=== PATIENT | female | born 1945 | race Caucasian/White ===

== ENCOUNTER 2021-03-07 06:25 | Inpatient (IN) | payer MEDICARE ==
[~2021-03-07] VITALS: Ht 160 cm; Wt 45.9 kg
--- NOTE | 2021-03-07 06:35 | PHYS DOC ---
General Adult EDM: Chief Complaint: CHEST PAIN HPI: HPI: 75 yo F PMH CAD (LAD w/ MELISSA 2015), HTN, HLD, sinus disease and tobacco use, presents to the ED with her daughter (patient consents to his/her/their knowledge and involvement in pts' medical care), complains of sudden onset sharp, nonradiating pain "where my bra strap is," just below her shoulder blades that started around 530 this morning, waking patient up. Reports associated shortness of breath and diaphoresis. Took 1 nitro and 2 baby aspirin's prior to arrival. Pain still present but not as severe. Patient follows with a marketing production specialist annually, Dr. Brizuela, in [place] where pt lives (pt here visiting). Cannot recall any stress test since her heart attack in 2016. Patient had no chest or back discomfort with her prior heart attack -reported tingling in her arms and diaphoresis. Reports no known history of Covid and has been vaccinated for Covid. Only past surgical history is breast augmentation. No history of clotting disorders. Not on any blood thinners. Was formally on Plavix. Review of Systems: Review of Systems: Constitutional: Denies fever or chills Eyes: Denies change in visual acuity HENT: Denies nasal congestion or sore throat Respiratory: Denies cough or hemoptysis Cardiovascular: Denies chest pain or edema GI: Denies abdominal pain, vomiting, bloody stools or diarrhea : Denies dysuria or vaginal bleeding Musculoskeletal: Denies cva tenderness or joint pain Integument: Denies rash or desquamation Neurologic: Denies headache, focal weakness or sensory changes Endocrine: Denies polyuria or polydipsia Lymphatic: Denies swollen glands Psychiatric: Denies depression or anxiety Physical Exam: PE: Constitutional: Well developed, well nourished, no acute distress, non-toxic appearance. HENT: Normocephalic, atraumatic, Eyes: EOMI, conjunctiva normal, no discharge. Neck: Normal range of motion, supple, Cardiovascular: S1/2 present, regular rhythm Lungs & Thorax: Speaking in full sentences, bilateral equal chest rise, no tachypnea or increased work of breathing Abdomen: soft, no tenderness, Skin: Warm, dry, no erythema, no rash. [] Back: No reproducible tenderness, no CVA tenderness. [] Extremities: No tenderness, no cyanosis, no lower extremity edema Neurologic: Alert and oriented X 3, normal motor function, normal sensory function, no focal deficits noted. [] Psychologic: Affect normal, judgement normal, mood normal. [] EKG: EK Sinus rhythm 60 bpm, no axis deviation, first-degree AV block with IL interval 200, QTC 462, T wave inversion V2, Q-wave lead III, no ST elevation or ST depression, no prior EKG for comparison 0714 sinus rhythm 62 bpm, no axis deviation, first-degree AV block with IL interval 202, T wave inversion aVL (new) and V2, no ST elevation or ST depression Radiology/Procedures: Radiology/Procedures: IMAGING REPORT Signed PATIENT: NORBERTO HOANG ACCOUNT: [id number] : 1945 LOCATION: ER AGE: 75 SEX: F EXAM STATUS: PRE ER ORD. PHYSICIAN: GUSTAOV VIEIRA DO REASON: cp PROCEDURE: PORTABLE CHEST 1V XR CHEST 1V History: Reason: cp / Spl. Instructions: / History: Comparison: None. Findings: Hyperinflation. No consolidation or pleural effusion. Normal heart size. No pneumothorax. Bilateral calcified breast implants. Impression: 1. No acute cardiopulmonary process. Electronically signed by: Nas Person DO (03/07/2021 7:03 AM) [facility] DICTATED AND SIGNED BY: NAS PERSON DO DATE: 03/07/21 0702 CC: PCP,NO; GUSTAVO VIEIRA DO ~MTH0 0 IMAGING REPORT Signed PATIENT: NORBERTO HOANG ACCOUNT: [id number] : 1945 LOCATION: ER AGE: 75 SEX: F EXAM STATUS: REG ER ORD. PHYSICIAN: GUSTAVO VIEIRA DO REASON: cp, r/o dissection - 100mls omni 350 PROCEDURE: CT ANGIOGRAPHY CHEST EXAM: CT ANGIOGRAPHY OF THE CHEST WITH AND WITHOUT CONTRAST. HISTORY: Chest pain. TECHNIQUE: Computed tomographic angiography of the chest was performed before and after the intravenous administration of iodinated contrast. 3-D maximum intensity projections were also performed. One or more of the following individu alized dose reduction techniques were utilized for this examination: 1. Automated exposure control. 2. Adjustment of the mA and/or kV according to patient size. 3. Use of iterative reconstruction technique. COMPARISON: None. FINDINGS: Images of the upper abdomen reveal no acute abnormality. Bone windows reveal no suspicious lesions. There is a mild pectus excavatum deformity. No pulmonary emboli are identified. There is extensive uncalcified greater than calcified aortic plaquing. There is ectasia of the descending aorta measuring 3.4 x 3.2 cm. There is no ascending aneurysm. There is mild stenosis at the origin of the left subclavian artery. There is a common origin of the left common carotid and brachiocephalic arteries, a variant of normal. There are no pathologically enlarged mediastinal or axillary lymph nodes. There is no pleural or pericardial effusion. The heart is not enlarged. There are bilateral calcified breast implants. Implant rupture suspected medially on the right. A 5 mm nodule in the left upper lobe on image 35 is indeterminate but likely benign at this small size. Interstitial line thickening in the bases and laterally in the right upper lobe are consistent with a combination of atelectasis and scarring. There is also pleural parenchymal scarring in the apices. IMPRESSION: 1. Extensive ulcerated atherosclerotic plaquing throughout the descending aorta without dissection or penetrating atherosclerotic ulcer. There is mild ectasia of the descending aorta at 3.4 cm. 2. 5 mm left upper lobe nodule, likely benign at this size. Follow-up could be considered in one year if there are risk factors. Electronically signed by: Дмитрий Cook MD (03/07/2021 9:10 AM) [id number] DICTATED AND SIGNED BY: SAMI COOK MD DATE: 03/07/21 0858 CC: PCP,NO; GUSTAVO VIEIRA DO ~MTH0 0 Heart Score: C/O Chest Pain: Yes HEART Score for Chest Pain: HEART Score for Chest Pain Response (Comments) Value History Moderately Suspicious 1 ECG Normal 0 Age > 65 2 Risk Factors >3 Risk Factors or Hx CAD 2 Troponin < Normal Limit 0 Total 5 Risk Factors: Risk Factors: DM, Current or recent (<one month) smoker, HTN, HLP, family history of CAD, obesity. Risk Scores: Score 0 - 3: 2.5% MACE over next 6 weeks - Discharge Home Score 4 - 6: 20.3% MACE over next 6 weeks - Admit for Clinical Observation Score 7 - 10: 72.7% MACE over next 6 weeks - Early Invasive Strategies Course & Med Decision Making: Course & Med Decision Making Pertinent Labs and Imaging studies reviewed. (See chart for details) Concern for atypical chest pain or moderate risk patient-pain was severe and with sudden onset. No ST elevations on EKG. Initial troponin negative. D- dimer elevated. CTA of the chest w/no evidence of dissection. I spoke to Dr. Shields, cardiology who agrees with plan-full consultation pending. Will admit for further medical management. Patient stable time of admission agrees with this plan. I have spoken with the patient and/or caregivers. I have explained the patient's condition, diagnosis and treatment plan based on the information available to me at this time. I have answered the patient's and/or caregivers questions and answered any concerns. The patient and/or caregivers have as good an understanding of the patient's diagnosis, condition and treatment plan as can be expected at this point. The patient has been stabilized within the capability of the emergency department. The patient will be transported for further care and management or will be moved to an observation or inpatient service. I have communicated with the staff or medical practitioner taking over this patient's care. Nohelia Disclaimer: Nohelia Disclaimer: This electronic medical record was generated, in whole or in part, using a voice recognition dictation system. Departure Departure: Impression: Primary Impression: Atypical chest pain Disposition: ADMITTED INPATIENT Admitting Physician: Amy Barrios Condition: STABLE Referrals: PCP,JESS (PCP) GUSTAVO VIEIRA DO Mar 07, 2021 06:35
--- NOTE | 2021-03-07 06:44 | EKG ---
[address] [address] Test Date: 2021-03-07 Test Time: 06:31:50 Pat Name: NORBERTO HOANG Department: Room: Gender: F Lead Warehouse Associate: VENITA : 1945 Requested By: GUSTAVO VIEIRA Order Number: [id number] Reading MD: [place] Measurements Intervals [place] Rate: 69 P: 63 [place]: 200 QRS: 35 QRSD: 88 T: 56 QT: 430 QTc: 462 Interpretive Statements SINUS RHYTHM LEFT ATRIAL ABNORMALITY INCOMPLETE RIGHT BUNDLE BRANCH BLOCK ABNORMAL ECG RI6.02 No previous ECG available for comparison Electronically Signed On 03-09-2021 16:52:25 CDT by [place]
[2021-03-07 06:55] LABS: BASO # 0.1 x10^3/uL (0.0-0.2); BASO % 1 % (0-3); EOS % 8 % (0-3); HEMATOCRIT 44.1 % (36.0-47.0); HEMOGLOBIN 14.6 g/dL (12.0-15.5); LYMPH # 3.7 x10^3/uL (1.0-4.8); LYMPH % 31 % (24-48); MEAN CORPUSCULAR HEMOGLOBIN 32 pg (25-35); MEAN CORPUSCULAR HGB CONC 33 g/dL (31-37); MEAN CORPUSCULAR VOLUME 96 fL (79-100); MONO # 1.3 x10^3/uL (0.0-1.1); MONO % 11 % (0-9); NEUT % 50 % (31-73); PLATELET COUNT 337 x10^3/uL (140-400); RED BLOOD COUNT 4.62 x10^6/uL (3.50-5.40); RED CELL DISTRIBUTION WIDTH 13.8 % (11.5-14.5); WHITE BLOOD COUNT 12.1 x10^3/uL (4.0-11.0)
[2021-03-07 06:59] LABS: CALCIUM 9.1 mg/dL (8.5-10.1); CREATININE 0.7 mg/dL (0.6-1.0); GFR 81.8; POTASSIUM 4.1 mmol/L (3.5-5.1)
--- NOTE | 2021-03-07 07:05 | RAD ---
XR CHEST 1V History: Reason: cp / Spl. Instructions: / History: Comparison: None. Findings: Hyperinflation. No consolidation or pleural effusion. Normal heart size. No pneumothorax. Bilateral c alcified breast implants. Impression: 1. No acute cardiopulmonary process. Electronically signed by: Nas Person DO (03/07/2021 7:03 AM) [facility] [place]
[2021-03-07 07:12] LABS: ALBUMIN 3.5 g/dL (3.4-5.0); ALBUMIN/GLOBULIN RATIO 1.1 (1.0-1.7); MAGNESIUM 2.1 mg/dL (1.8-2.4); TOTAL BILIRUBIN 0.5 mg/dL (0.2-1.0); TOTAL PROTEIN 6.6 g/dL (6.4-8.2)
--- NOTE | 2021-03-07 07:33 | EKG ---
[facility] [address] [place] [id number] Test Date: 2021-03-07 Test Time: 07:14:49 Pat Name: NORBERTO HOANG Department: Room: Gender: F Client Services Director: VENITA : 1945 Requested By: GUSTAVO VIEIRA Order Number: [id number] Reading MD: [place] Measurements Intervals [place] Rate: 62 P: 64 [place]: 202 QRS: 63 QRSD: 88 T: 70 QT: 448 QTc: 457 Interpretive Statements SINUS RHYTHM LEFT ATRIAL ABNORMALITY INCOMPLETE RIGHT BUNDLE BRANCH BLOCK ABNORMAL ECG RI6.02 Compared to ECG 03/07/2021 06:31:50 No significant changes Electronically Signed On 03-09-2021 16:52:21 CDT by [place]
[2021-03-07] MEDS ORDERED: IOHEXOL 350 MG/ML 100 ML VIAL. IV ONE (08:00)
[2021-03-07] MEDS ORDERED: HYDROmorphone PF 1 MG/ML DISP.SYRIN IVP ONE ×2 (08:15→09:30)
--- NOTE | 2021-03-07 09:13 | RAD ---
EXAM: CT ANGIOGRAPHY OF THE CHEST WITH AND WITHOUT CONTRAST. HISTORY: Chest pain. TECHNIQUE: Computed tomographic angiography of the chest was performed before and after the intraveno us administration of iodinated contrast. 3-D maximum intensity projections were also performed. One o r more of the following individualized dose reduction techniques were utilized for this examination: 1. Automated exposure control. 2. Adjustment of the mA and/or kV according to patient size. 3. Use of iterative reconstruction technique. COMPARISON: None. FINDINGS: Images of the upper abdomen reveal no acute abnormality. Bone windows reveal no suspicious lesions. There is a mild pectus excavatum deformity. No pulmonary emboli are identified. There is extensive uncalcified greater than calcified aortic plaq uing. There is ectasia of the descending aorta measuring 3.4 x 3.2 cm. There is no ascending aneurysm . There is mild stenosis at the origin of the left subclavian artery. There is a common origin of the left common carotid and brachiocephalic arteries, a variant of normal. There are no pathologically enlarged mediastinal or axillary lymph nodes. There is no pleural or nehemias cardial effusion. The heart is not enlarged. There are bilateral calcified breast implants. Implant r upture suspected medially on the right. A 5 mm nodule in the left upper lobe on image 35 is indeterminate but likely benign at this small siz e. Interstitial line thickening in the bases and laterally in the right upper lobe are consistent wit h a combination of atelectasis and scarring. There is also pleural parenchymal scarring in the apices . IMPRESSION: 1. Extensive ulcerated atherosclerotic plaquing throughout the descending aorta without dissection or penetrating atherosclerotic ulcer. There is mild ectasia of the descending aorta at 3.4 cm. 2. 5 mm left upper lobe nodule, likely benign at this size. Follow-up could be considered in one year if there are risk factors. Electronically signed by: Дмитрий Cook MD (03/07/2021 9:10 AM) [id number]
[2021-03-07 11:08] VITALS: BP 157/66
[2021-03-07] MEDS ORDERED: SERT20OR3 PO (11:30)
[2021-03-07] MEDS ORDERED: ZAFI20TA12 PO (11:30)
[2021-03-07] MEDS ORDERED: ASPI-630 PO (11:30)
[2021-03-07] MEDS ORDERED: CHOL500021 PO (11:30)
[2021-03-07] MEDS ORDERED: METO-239 PO (11:30)
[2021-03-07] MEDS ORDERED: ATOR40TA59 PO (11:30)
--- NOTE | 2021-03-07 11:59 | NUR ---
PATIENT IS A 75 Y O FEMALE , ARRIVED VIA EMS. PATIENT IS CALM AND COOPERATIVE UPON ASSESSMENT, C/O BACK PAIN BETWEEN HER SHOULDER BLADES. PATIENT HAS A HX OF ID IN 2016. PATIENT IS ORIENTED TO THE ROOM AND HOSPITAL POLICIES. PATIENT IS CURRENTLY IN A BED RESTING.
[2021-03-07 12:15] LABS: BILIRUBIN,URINE NEG (NEG); CLARITY,URINE CLEAR; COLOR,URINE YELLOW; GLUCOSE,URINE NEG (NEG)
[2021-03-07 12:16] LABS: BACTERIA,URINE 0 /HPF (0-FEW); NITRITE,URINE NEG (NEG); RBC,URINE RARE /HPF (0-2); SQUAMOUS EPITHELIAL CELL,UR OCC /LPF; UROBILINOGEN,URINE 0.2 mg/dL (0.2 mg/dL); WBC,URINE RARE /HPF (0-4)
[2021-03-07] MEDS ORDERED: Influenza vaccine per PROTOCOL. MC PRN (12:45)
--- NOTE | 2021-03-07 13:12 | HP ---
ADMIT DATE: 03/07/2021 HISTORY OF PRESENT ILLNESS: The patient is a 75-year-old female patient who presented to the Emergency Room with pain that is of sudden onset, sharp, nonradiating, described it as where her bra straps is just below her shoulder blades that started around 5:30 this morning, waking the patient up. She reports associated shortness of breath and diaphoresis. She took 1 nitroglycerin sublingually and 2 baby aspirin prior to arrival. The nitroglycerin did not really help. By the time she arrived to the Emergency Room, the pain is still present, but not as severe. She was extensively evaluated in the Emergency Room, has had an EKG, which showed that she was in sinus rhythm at 60 beats per minute with no axis deviation, first-degree AV block with a MT interval of around 200. QTc 462. T-wave inversion in V2, Q-waves in lead III. No ST elevation or depression and a second EKG also showed that she was in sinus rhythm at 62 beats per minute. Her chest x-ray was unremarkable and showed no acute cardiopulmonary process. She has had lab work including a CBC, which showed a white cell count of 12,000. Her chemistry showed a first set of cardiac enzyme was less than 0.07. In fact, she has 2 cardiac enzymes that ruled out myocardial infarction. Her D-dimer was high at 2.12. However, PT/INR and APTT were normal. She underwent CT angio of the chest, which basically showed extensive ulcerated atherosclerotic plaquing throughout the descending aorta without dissection or penetrating atherosclerotic ulcers. There is mild ectasia of the descending colon at around 3.4 cm. She has a 5 mm left upper lobe nodule, likely benign at this size. Followup could be considered in 1 year if there are risk factors. The patient was admitted for further evaluation and to consult the Cardiology team. PAST MEDICAL HISTORY: Significant for hypertension, hyperlipidemia, coronary artery disease status post PCI with stent deployment. She has also generalized osteoarthritis. PAST SURGICAL HISTORY: Significant for PCI and stent deployment, tonsillectomy at the age of 5, breast implants at age of 38. ALLERGIES: SHE IS ALLERGIC TO PENICILLIN. MEDICATIONS: She is currently on the following medication: She is on atorvastatin, calcium 40 mg at bedtime, metoprolol succinate 25 mg twice a day, aspirin 81 mg once a day, sertraline 20 mg per 1 mL oral concentrate, she takes 50 mg daily and leukotriene modifiers, zafirlukast 20 mg daily. She is on cholecalciferol, vitamin D3 50,000 international units once a week. FAMILY HISTORY: She has 2 brothers. Her older brother has prostate cancer. Another younger brother has a CVA at the age of 60. She has 1 sister, who of ovarian cancer at the age of 23. Father at the age of 61 because of prostate cancer. Mother at the age 74 because of cerebrovascular accident. SOCIAL HISTORY: She is , has 3 daughters and 1 son. She continued to smoke half a pack a day, drinks alcohol very occasionally. Does not use any drugs. She is a retired RN. REVIEW OF SYSTEMS: The patient has bilateral cataracts that did not require surgery yet, but denied any glaucoma or macular degeneration. Denied any earache, tinnitus, or sensory deafness. Denied any nosebleed, stuffy nose, or postnasal drip. Denied any sore throat, sore tongue, toothache, hoarseness of voice or difficulty swallowing. Denied any nausea, vomiting, or diarrhea, but did complain of constipation. Denied any hematemesis, melena or hematochezia. Denied any dysuria, frequency, or hematuria. Denied any chest pain, likely in the retrosternal area. Denied any orthopnea or paroxysmal nocturnal dyspnea. Denied any cough, phlegm, or hemoptysis. Denied any chills, rigors, or fever. PHYSICAL EXAMINATION: GENERAL: On arrival to the Emergency Room, she looked well and was clearly in no apparent respiratory distress. There was no pallor, jaundice, cyanosis, or thyromegaly. No jugular venous distention. No limb edema. VITAL SIGNS: Her heart rate was 73, blood pressure is 132/79, temperature was 97.7, respiratory rate was 17, and oxygen saturation was 95%. HEAD, EYES, EARS, NOSE, AND THROAT: Normocephalic, atraumatic. NECK: Supple. HEART: Normal first and second heart sounds, no gallop or murmur. CHEST: Shows central trachea, equally reduced expansion, reduced air entry, vesicular breath sounds. I could not appreciate any crepitation or rhonchi. ABDOMEN: Distended, soft, nontender. NEUROLOGIC: The patient was awake, alert, responding appropriately. All cranial nerves intact. She moves extremities without difficulty. She has marked muscle wasting and she is cachectic with a body mass index only 17.9 kilogram/square meter. LABORATORY DATA: On arrival showed a white cell count 12,000, hemoglobin 14.6, hematocrit 44, MCV 96 and platelet count of 337,000. Her serum sodium 140, potassium 4.1, chloride 106, bicarbonate 26, anion gap of 8, BUN 20, creatinine 0.7. Estimated GFR was 81 mL per minute. Her glucose 101, calcium was 9.1, magnesium was 2.1. Total bilirubin, AST, ALT, and alkaline phosphatase were normal. CK was 131. First troponin was less than 0.017. Her beta natriuretic peptide was 329. Total protein 6.6, albumin was 3.5, and serum lipase was 125. ASSESSMENT AND PLAN: In summary, this is a 75-year-old female patient, who apparently has had a myocardial infarction about 6 years ago for which she required a cardiac catheterization, angioplasty and stent deployment. She is known to have multiple risk factors for coronary artery disease including hypertension and hyperlipidemia. She continues to smoke and who presented with pain, mostly between shoulder blades, more so on the right than left, associated with diaphoresis and shortness of breath. So far, her EKG showed that she was in sinus rhythm with no evidence of ST segment elevation or depression. Two sets of cardiac enzymes were negative for coronary artery disease. CT angio of the chest showed no evidence of dissection. No pneumothorax. No pericardial effusion or pleural effusion. I reconciled all her medications. We will continue with pain medication for now, do 3 sets of cardiac enzyme, and consult our scientific investigator and decide on further management accordingly. COBY DR: Maverick TID: [id number]
--- NOTE | 2021-03-07 13:21 | NUR ---
CONSULT FOR POST PARTUM NURSE HAS BEEN CALLED.
[2021-03-07] MEDS ORDERED: NITROGLYCERIN SUBLINGUAL 0.4 MG BOTTLE OF 25. SL PRN (14:30)
[2021-03-07] MEDS: HYDROcodone/APAP 5/325MG 1 TAB TABLET PO PRN ×2 (15:21→21:25)
[2021-03-07 15:39] VITALS: BP 132/79
[2021-03-07 19:15] VITALS: BP 121/62
[2021-03-07] MEDS ORDERED: ATORVASTATIN CALCIUM 20 MG TABLET PO SCH (21:00)
[2021-03-07] MEDS ORDERED: TEMAZEPAM 15 MG CAPSULE PO PRN (21:00)
[2021-03-07] MEDS ORDERED: ZAFIRLUKAST PO SCH (21:00)
[2021-03-07] MEDS ORDERED: METOPROLOL SUCC 24HR ER 25 MG TAB.ER.24H. PO SCH (21:00)
[2021-03-07] MEDS ORDERED: MONTELUKAST 10 MG TABLET. PO SCH (21:00)
[2021-03-07] MEDS: METOPROLOL TART IMMED RELEASE 25 MG TABLET. PO SCH (21:13)
[2021-03-07 22:53] VITALS: BP 113/58
[2021-03-08 05:44] VITALS: BP 111/74
--- NOTE | 2021-03-08 06:46 | NUR ---
Nursing note: Pt c/o pain near right shoulder, stated it felt more "achy" than previously; relieved with lortabs. Pt also tried heat therapy, concerned it was more muscular than cardiac related. Pt VSS, did not rest through much of shift as pt slept through most of day shift.
--- NOTE | 2021-03-08 08:25 | PDOC2 ---
CONSULT DOS: DATE: 03/07/21 TIME: 18:00 Reason for Consult: Chest pain Referring Physician: Dr. Barrios Chief Complaint Chest pain Source: Chart review, Patient Problem List Problems Medical Problems: (1) Atypical chest pain Status: Acute History of Present Illness The patient is a 75 year old female who reports discomfort in her upper back with radiation to her chest. She has a history of CAD with a stent placed in 2016. She routinely follows with her process design chemical engineer in [place]. She reports feeling quite anxious over the past 3 days and has had little sleep. Her EKG shows no acute ischemic changes and her initial cardiac enzymes are normal. She is feeling mildly better in the ER. Cardiovascular: CAD, HTN, hyperipidemia Past Surgical History: Other (Coronary stent) Family History: Hypertension ALCOHOL: none Current Medications Current Medications Iohexol (Omnipaque 350 Mg/ml) 100 ml 1X ONCE IV Last administered on 03/07/21at 08:33; Start 03/07/21 at 08:00; Stop 03/07/21 at 08:08; Status DC Hydromorphone HCl (Dilaudid) 0.5 mg 1X ONCE IVP Last administered on 03/07/21at 08:13; Start 03/07/21 at 08:15; Stop 03/07/21 at 08:16; Status DC Hydromorphone HCl (Dilaudid) 1 mg 1X ONCE IVP Last administered on 03/07/21at 09:22; Start 03/07/21 at 09:30; Stop 03/07/21 at 09:31; Status DC Aspirin (Aspirin Chewable) 81 mg DAILY PO ; Start 03/08/21 at 09:00 Vitamin D (Vitamin D3) 5,000 unit DAILY PO ; Start 03/08/21 at 09:00 Metoprolol Succinate (Toprol Xl) 25 mg BID PO ; Start 03/07/21 at 21:00; Stop 03/07/21 at 12:24; Status DC Sertraline HCl (Zoloft Oral Conc) 50 mg DAILY PO ; Start 03/08/21 at 09:00; Stop 03/07/21 at 12:24; Status DC Non-Formulary Medication (Zafirlukast ) 1 tab BID PO ; Start 03/07/21 at 21:00; Stop 03/07/21 at 12:19; Status DC Atorvastatin Calcium (Lipitor) 40 mg QHS PO Last administered on 03/07/21at 21:13; Start 03/07/21 at 21:00 Acetaminophen/ Hydrocodone Bitart (Lortab 5/325) 1 tab PRN Q6HRS PRN PO PAIN Last administered on 03/07/21at 21:25; Start 03/07/21 at 12:15 Montelukast Sodium (Singulair) 10 mg QHS PO Last administered on 03/07/21at 21:14; Start 03/07/21 at 21:00 Metoprolol Tartrate (Lopressor) 25 mg BID PO Last administered on 03/07/21at 21:13; Start 03/07/21 at 21:00 Sertraline HCl (Zoloft) 50 mg DAILY PO ; Start 03/08/21 at 09:00 Info (FLU VACCINE per PROTOCOL) 1 ea PRN 1X PRN MC PER PROTOCOL; Start 03/07/21 at 12:45; Stop 03/07/21 at 12:48; Status DC Influenza Virus Vaccine Quadrival (Flulaval Quad Syringe) 0.5 ml ONCE ONCE VAX IM ; Start 03/08/21 at 09:00; Stop 03/08/21 at 09:01 Temazepam (Restoril) 15 mg PRN QHS PRN PO INSOMNIA; Start 03/07/21 at 21:00 Nitroglycerin (Nitrostat) 0.4 mg PRN Q5MIN PRN SL CHEST PAIN; Start 03/07/21 at 14:30 Active Scripts Active Reported Atorvastatin Calcium 40 Mg Tablet 1 Tab PO DAILY Zafirlukast 20 Mg Tablet 1 Tab PO BID 30 Days Aspirin 81 Mg Tab.chew 81 Mg PO DAILY Sertraline Hcl Oral Conc (Sertraline Hcl) 20 Mg/1 Ml Oral.conc 50 Mg PO DAILY Metoprolol Succinate ( Xl ) (Metoprolol Succinate) 25 Mg Tab.er.24h 1 Tab PO BID D3-50 (Cholecalciferol (Vitamin D3)) 50,000 Unit Capsule 5,000 Unit PO DAILY Allergies: Uncoded Allergies: PENICILLIN (Allergy, Unknown, 03/07/21) General: YES: Fatigue PSYCHOLOGICAL ROS: YES: Anxiety Cardiovascular: yes: Chest Pain General: mild distress Lungs: Clear to auscultation Heart: Regular rate Abdomen: Normal bowel sounds VITALS Vital Signs Date Time Temp Pulse Resp B/P (MAP) Pulse Ox O2 Delivery O2 Flow Rate FiO2 03/08/21 05:44 98.7 76 20 111/74 (86) 93 Room Air Labs Laboratory Tests Test 03/07/21 06:34 03/07/21 08:56 03/07/21 09:36 03/07/21 12:00 White Blood Count 12.1 x10^3/uL (4.0-11.0) Red Blood Count 4.62 x10^6/uL (3.50-5.40) Hemoglobin 14.6 g/dL (12.0-15.5) Hematocrit 44.1 % (36.0-47.0) Mean Corpuscular Volume 96 fL (79-100) Mean Corpuscular Hemoglobin 32 pg (25-35) Mean Corpuscular Hemoglobin Concent 33 g/dL (31-37) Red Cell Distribution Width 13.8 % (11.5-14.5) Platelet Count 337 x10^3/uL (140-400) Neutrophils (%) (Auto) 50 % (31-73) Lymphocytes (%) (Auto) 31 % (24-48) Monocytes (%) (Auto) 11 % (0-9) Eosinophils (%) (Auto) 8 % (0-3) Basophils (%) (Auto) 1 % (0-3) Neutrophils # (Auto) 6.0 x10^3uL (1.8-7.7) Lymphocytes # (Auto) 3.7 x10^3/uL (1.0-4.8) Monocytes # (Auto) 1.3 x10^3/uL (0.0-1.1) Eosinophils # (Auto) 1.0 x10^3/uL (0.0-0.7) Basophils # (Auto) 0.1 x10^3/uL (0.0-0.2) Prothrombin Time 9.9 SEC (9.4-11.4) Prothromb Time International Ratio 1.0 (0.9-1.1) Activated Partial Thromboplast Time 25 SEC (23-33) D-Dimer (Karlee) 2.12 mg/L (0.00-0.50) Sodium Level 140 mmol/L (136-145) Potassium Level 4.1 mmol/L (3.5-5.1) Chloride Level 106 mmol/L (98-107) Carbon Dioxide Level 26 mmol/L (21-32) Anion Gap 8 (6-14) Blood Urea Nitrogen 20 mg/dL (7-20) Creatinine 0.7 mg/dL (0.6-1.0) Estimated GFR (Cockcroft-Gault) 81.8 BUN/Creatinine Ratio 29 (6-20) Glucose Level 101 mg/dL (70-99) Calcium Level 9.1 mg/dL (8.5-10.1) Magnesium Level 2.1 mg/dL (1.8-2.4) Total Bilirubin 0.5 mg/dL (0.2-1.0) Aspartate Amino Transf (AST/SGOT) 26 U/L (15-37) Alanine Aminotransferase (ALT/SGPT) 32 U/L (14-59) Alkaline Phosphatase 112 U/L (46-116) Creatine Kinase 131 U/L (26-192) Troponin I Quantitative < 0.017 ng/mL (0-0.055) < 0.017 ng/mL (0-0.055) IL-Uby-S-Type Natriuretic Peptide 329 pg/mL (0-124) Total Protein 6.6 g/dL (6.4-8.2) Albumin 3.5 g/dL (3.4-5.0) Albumin/Globulin Ratio 1.1 (1.0-1.7) Lipase 125 U/L (73-393) Coronavirus (COVID-19)(PCR) Not detected (NOT DETECTD) SARS-CoV-2 Antigen (Rapid) Negative (NEGATIVE) Urine Collection Type Unknown Urine Color Yellow Urine Clarity Clear Urine pH 5.0 Urine Specific [place] <=1.005 Urine Protein Neg (NEG-TRACE) Urine Glucose (UA) Neg mg/dL (NEG) Urine Ketones (Stick) Neg mg/dL (NEG) Urine Blood Trace (NEG) Urine Nitrite Neg (NEG) Urine Bilirubin Neg (NEG) Urine Urobilinogen Dipstick 0.2 mg/dL (0.2 mg/dL) Urine Leukocyte Esterase Neg (NEG) Urine RBC Rare /HPF (0-2) Urine WBC Rare /HPF (0-4) Urine Squamous Epithelial Cells Occ /LPF Urine Bacteria 0 /HPF (0-FEW) Test 03/07/21 12:30 03/07/21 20:15 Troponin I Quantitative < 0.017 ng/mL (0-0.055) < 0.017 ng/mL (0-0.055) Assessment/Plan 1. Chest pain. Atypical chest pain with a history of CAD. No acute EKG changes and initial enzymes are normal. The patient is seen in the ER and is being admitted. CT scan pending. Rule out protocol. 2. HTN. Continue baseline medications. 3. HLD. Checking lab. BLADE CALLAWAY MD Mar 08, 2021 08:25
[2021-03-08 08:37] LABS: CALCIUM 8.9 mg/dL (8.5-10.1); CREATININE 0.5 mg/dL (0.6-1.0); GFR 120.6; POTASSIUM 3.6 mmol/L (3.5-5.1)
[2021-03-08] MEDS ORDERED: FLU VACC QUAD 21-22 (6MOS+) PF 0.5 ML SYRINGE. VAX IM ONE (09:00)
[2021-03-08] MEDS ORDERED: SERTRALINE 20 MG/ML PO SCH (09:00)
[2021-03-08] MEDS ORDERED: CHOLECALCIFEROL (VITAMIN D3) 1,000 UNIT TABLET PO SCH (09:00)
[2021-03-08] MEDS ORDERED: ASPIRIN CHEWABLE 81 MG TABLET. PO SCH (09:00)
[2021-03-08] MEDS ORDERED: SERTRALINE 50 MG TABLET. PO SCH (09:00)
[2021-03-08] MEDS: METOPROLOL TART IMMED RELEASE 25 MG TABLET. PO SCH (09:58)
[2021-03-08] MEDS ORDERED: methylPREDNISolone SOD SUCC PF 40 MG/ML VIAL. IV ONE (11:30)
[2021-03-08 13:36] VITALS: BP 111/62
[2021-03-08 15:35] VITALS: BP 114/71
[2021-03-08] MEDS ORDERED: CEFD300C PO (17:08)
[2021-03-08] MEDS ORDERED: TRAZ-120 PO (17:08)
[2021-03-08 19:23] VITALS: BP 147/84
--- NOTE | 2021-03-08 19:24 | NUR ---
Discharge Note: Discharge instructions and discharge home medications reviewed with Patient and a copy given. All questions have been answered and understanding verbalized. The following instructions and handouts were given: F/U instructions, discharge paperwork, stroke paperwork. Discontinued lines and drains: 20g R FA. Patient discharged to daughter's home with daughter via POV; pt ambulated off unit with nursing staff. Pt verbalized all belongings collected.
--- NOTE | 2021-03-09 03:56 | PN ---
DATE: 03/08/2021 SUBJECTIVE: The patient is resting, slightly propped up in bed, in no apparent respiratory distress. She is complaining of cough with yellow sputum. She also has pain in her back of her chest and also in her chondrocostal margin. She did have 3 sets of cardiac enzymes that ruled out myocardial infarction and showed troponin to be less than 0.017. Her fasting lipid profile showed serum triglycerides to be 101. Total cholesterol 162, LDL cholesterol 93, VLDL was 20 and HDL 49, the ratio was 3. Her D-dimer was high at 2.12. Urinalysis essentially unremarkable and her CT angio of the chest showed that there is extensive ulcerated atherosclerotic plaquing throughout the descending aorta without dissection or penetrating atherosclerotic ulcers. There is mild ectasia of the descending aorta at 3.4 cm. She has 5 mm left upper lobe nodule, likely benign at this size. There is no pulmonary emboli identified. There is extensive non-calcified greater than calcified aortic plaque. There is no ascending aneurysm. There is mild stenosis at the origin of the left subclavian artery and there is a common origin of the left common carotid and brachiocephalic artery is a variant of normal. There are no pathologically enlarged mediastinal or axillary lymph nodes. There is no pleural or pericardial effusion. The heart is not enlarged. There are bilateral calcified breast implants. PLAN: My plan is to start the patient on IV antibiotic for possible acute bronchitis with yellowish sputum, and also because of wheezing, started on some Solu-Medrol. Await the evaluation by the neonatal icu coordinator and if they are agreeable to discharge her, I will let her go home on a tapering course of steroids as well as cefdinir, together with all her other medication. We have had a lengthy discussion and the patient was counseled about cigarette smoking. HARISH/EL DR: Maverick TID: [id number]
--- NOTE | 2021-03-18 13:18 | DS ---
DATE OF DISCHARGE: 03/08/2021 HOSPITAL COURSE: The patient is a 75-year-old female patient who presented to the Emergency Room with chest pain that awakened her around 5:30 in the morning. The pain was mostly below her shoulder blades and was associated with shortness of breath and diaphoresis. She took 1 nitroglycerin sublingually and 2 baby aspirin prior to arrival. The nitroglycerin did not really help. By the time she arrived to the Emergency Room, the pain was still present, but not as severe. She was extensively investigated in the Emergency Room with an EKG, that showed that she was in sinus rhythm at heart rate of 60 beats per minute with normal DC interval and a corrected QT interval of 462. T-wave inversion in V2 and Q-waves in lead III, but no ST segment elevation or depression. She did have a CT angio of the chest, which showed extensive ulcerated atherosclerotic plaquing throughout the descending aorta without dissecting or penetrating atherosclerotic ulcer. There is mild ectasia of the descending colon at around 3.4 cm. She has a 5 mm left upper lobe nodules, likely benign. The patient was admitted and has 3 sets of cardiac enzymes that ruled out acute myocardial infarction. She was seen in consultation by the record filing clerk and basically the patient was discharged home to follow with her primary record filing clerk in [place], as she was visiting here her daughter who was promoted recently. PHYSICAL EXAMINATION: GENERAL: On day of discharge, the patient looked well, pale, extremely emaciated and cachectic, but not jaundice or cyanosed. No lymphadenopathy, no thyromegaly, no jugular venous distention. No limb edema. VITAL SIGNS: Her heart rate was 68, blood pressure was 147/84, temperature was 97.5, respiratory rate was 18 and oxygen saturation was 94% on room air. HEAD, EYES, EARS, NOSE, AND THROAT: Normocephalic, atraumatic. NECK: Supple. HEART: Showed normal first and second heart sounds. No gallop, rub or murmur. CHEST: Clear to auscultation. No crepitation or rhonchi. ABDOMEN: Scaphoid, soft, nontender. NEUROLOGIC: She was grossly intact. Her intake and output are incompletely recorded. LABORATORY DATA: On the day of discharge, showed a white cell count of 12,000, hemoglobin 14.6, hematocrit 44, MCV 96 and platelet count of 337,000. Her chemistry showed a serum sodium 137, potassium 3.6, chloride 103, bicarbonate 27, anion gap of 7, BUN 15, creatinine 0.5. Estimated GFR was 120 mL per minute. Her glucose was 96, calcium was 8.9. She had 3 sets of cardiac enzymes, showed troponin to be less than 0.017. Her serum triglycerides was 101. Total cholesterol 162, LDL was 93, VLDL was 20 and HDL cholesterol was 49, ratio was 3. Her prothrombin time, INR and APTT were normal and D-dimer was high at 2.12. However, CT angio of the chest showed extensive ulcerated atherosclerotic plaquing throughout the descending aorta without dissection or penetrating atherosclerotic ulcer. There is mild ectasia of the descending aorta at 3.4 cm. DISCHARGE MEDICATIONS: The patient was discharged home to continue on cefdinir 300 mg twice a day as she had also UTI and trazodone 50 mg at bedtime, aspirin 81 mg once a day, atorvastatin calcium 40 mg at bedtime, cholecalciferol, vitamin D3 at 5000 units once a day. She is also on metoprolol succinate 25 mg twice a day, sertraline or Zoloft 50 mg daily and zafirlukast 20 mg twice a day. FINAL DISCHARGE DIAGNOSES: 1. Chest pain, acute myocardial infarction was ruled out. 2. Acute bronchitis. 3. Hypertension. 4. Hyperlipidemia. 5. Coronary artery disease status post percutaneous coronary intervention with stent deployment. 6. Generalized osteoarthritis. 7. Nicotine dependence. The patient was counseled about smoking. MIRIAM DR: Maverick TID: [id number]
== END 2021-03-08 19:27 | disposition home or self-care (01) | DRG 313 ==
LOC: ER 06:25 → 1 SOUTH 07:49
PROVIDERS: ADMIT Internal Medicine; ATTEND Internal Medicine
DX: R07.89 Other chest pain (principal); J20.9 Acute bronchitis, unspecified; I25.10 Atherosclerotic heart disease of native coronary artery without angina pectoris; E78.5 Hyperlipidemia, unspecified; F17.210 Nicotine dependence, cigarettes, uncomplicated; I10 Essential (primary) hypertension; M15.9 Polyosteoarthritis, unspecified; Z80.42 Family history of malignant neoplasm of prostate; Z80.41 Family history of malignant neoplasm of ovary; Z82.49 Family history of ischemic heart disease and other diseases of the circulatory system; Z82.3 Family history of stroke; Z95.5 Presence of coronary angioplasty implant and graft; Z98.82 Breast implant status; Z88.8 Allergy status to other drugs, medicaments and biological substances; I25.2 Old myocardial infarction; Z20.822 Contact with and (suspected) exposure to COVID-19
CPT/HCPCS: 36415; 71045; 71275; 80048; 80053; 80061; 81001; 82550; 83690; 83735; 83880; 84484; 85025; 85379; 85610; 85730; 87426; 90471; 90686; 93005; 96374; 96376; J0696; J1170; J2920; Q9967; U0003; 99285-25